=== PATIENT | female | born 1940 | race Caucasian/White ===

== ENCOUNTER → 2016-04-15 | Outpatient (CLI) | payer MEDICARE ==
[2014-06-27 11:00] VITALS: BP 100/69
[~2016-04-15] MED LIST: ALEN35TA6 PO; ASPI81TA2 PO; CALC500T27 PO; CHOL20004 PO; CYAN1TAB28 PO; DENO60DI SQ; DOCU-27 PO; GLUC1TAB29 PO; HYDR-2762 PO; Hydrocodone/Acetaminophen PO; IOHEXOL 180 MG/ML 10 ML VIAL. ONE; LEVO50TA5 PO; MULT-91 PO; OMEG500C3 PO; OMEP20TA PO; methylPREDNISolone ACETATE 40 MG/ML VIAL. ONE; methylPREDNISolone ACETATE 80 MG/ML VIAL. ONE
--- NOTE | 2016-04-16 04:38 | PAIN ---
DATE OF SERVICE: 04/15/2016 DIAGNOSES: Lumbar radiculopathy with lumbar spondylosis, degenerative disk disease and post-lumbar laminectomy syndrome. HISTORY OF PRESENT ILLNESS: The patient is a 75-year-old female who returns for followup, last seen in 07/2013. The patient underwent lumbar epidural steroid injections with good results about 90% improvement. The pain had gotten worse over the past few years. She eventually had surgery with L4 laminectomy and diskectomy and did well afterwards, but the pain is returning now over the past several months in the low back and right leg, right hip, right thigh, anterior medial thigh as well as the medial lower leg down the right leg with some shocking and shooting sensations, worse with standing and walking, worse with first thing in the morning. Rates it as 4 on scale 10 currently, but can be much higher in the morning. The patient reports it is constant, aching pain with radiating shooting pain into the leg, mostly on the right side, but occasionally on the left and across the low back, again mostly right-sided. The patient reports no new motor or sensory deficits, no new bowel or bladder incontinence or other complaints, but still significant pain, especially getting up in the morning and with standing and walking with some fatigability in the right leg compared to the left and back pain associated as well. The patient reports no new motor or sensory deficits, no new bowel or bladder incontinence. PAST MEDICAL HISTORY: Significant for osteopenia, acid reflux, recent lumbar surgery in 06/2016. CURRENT MEDICATIONS: Updated and include omeprazole, alendronate, levothyroxine, vitamin B12, daily baby aspirin, multivitamins, calcium, glucosamine, and fish oils, also Tylenol. ALLERGIES: The patient has no known drug allergies. FAMILY HISTORY: Significant for no major medical problems or conditions that she is aware of, but some back pain and spinal problems with her sister. SOCIAL HISTORY: The patient is still working in real estate. The patient reports she is decreasing her workload; however, and is thinking retiring completely, but the pain exacerbates with her activities of daily living and cause some loss of recreational activity. REVIEW OF SYSTEMS: The patient's review of systems is positive for those items mentioned in history of present illness, are complete, full and well documented on the patient's chart. All systems reviewed and otherwise negative. PHYSICAL EXAMINATION: VITAL SIGNS: Today, the patient's blood pressure is 146/92, pulse 74, respirations 18, temperature 98.4 degrees Fahrenheit, weight is 148 pounds. GENERAL: The patient is awake, alert, oriented, appropriate, very pleasant demeanor. HEENT: Head shows normocephalic and atraumatic. Extraocular movements are intact, symmetrical. Oral cavity, mucous membranes are moist and pink. Dentition is intact. NECK: Shows anterior throat supple without palpable lymphadenopathy noted. Swallow reflex is symmetrical. CHEST: Shows normal on inspection. Breath sounds are clear to auscultation bilaterally. HEART: Shows S1 and S2 clear. No murmurs are auscultated. ABDOMEN: Soft, nontender, and nondistended. No palpable organomegaly noted. No rebound or guarding demonstrated. BACK: Shows spine grossly midline. Normal appearing thoracic kyphosis and lumbar lordotic curvatures, slightly flattened well-healed surgical scars noted in the lumbar distribution in the midline. Lumbar paraspinous muscle shows some moderate tenderness with palpation bilaterally, but only diffusely, slightly more on the right than the left, but again no asymmetry, no tenderness over the sacrum or sacroiliac regions. The patient has good rotational motion of lumbar spine, both laterally greater than 10 degrees right and left as well as extension greater than 10 degrees, forward flexion 45 degrees without difficulty or pain reported. Lower extremities showed deep tendon reflexes 1+ in the patellar and tendo calcaneus tendons are equal. Motor exam is strong with dorsiflexion, extension, quadriceps and hamstring flexion equal at 5/5 and symmetrical. Peripheral pulses are 1+, posterior tibial and dorsalis pedis pulses. No peripheral edema is noted. No clubbing, no cyanosis. Lower extremities are warm and dry to touch, equal in color and appearance. The patient is able to stand, stand on her toes, walks with a normal appearing gait for short distance in the office today. She does not appear to favor the right or left lower extremity, not using any assistive devices such as canes or walkers to ambulate. Options were discussed with the patient. We will proceed with a caudal approach epidural steroid injection today with fluoroscopic guidance. Risks were discussed including but not limited to bleeding, infection, possibility of epidural hematoma, subsequent neurologic compromise, dural puncture, headaches, spinal cord and/or nerve damage, side effects of steroid medication and poor results regarding pain control. The patient understands and wishes to proceed. The patient will return to clinic in approximately 2 weeks for followup, was counseled on return appointment, activity level and side effects to be aware of. CHELE POWELL MD DR: KATINA/charles JOB#: [id number] / [id number]
== END | disposition home or self-care (01) ==
LOC: PNCL 08:49
PROVIDERS: ATTEND Anesthesiology
DX: M51.16 Intervertebral disc disorders with radiculopathy, lumbar region (principal); M47.26 Other spondylosis with radiculopathy, lumbar region; M96.1 Postlaminectomy syndrome, not elsewhere classified; K21.9 Gastro-esophageal reflux disease without esophagitis; M19.90 Unspecified osteoarthritis, unspecified site; E03.9 Hypothyroidism, unspecified; Z87.39 Personal history of other diseases of the musculoskeletal system and connective tissue
CPT/HCPCS: 62323; J1030; J1040

== ENCOUNTER → 2016-05-06 | Outpatient (CLI) | payer MEDICARE ==
[2014-06-27 11:00] VITALS: BP 100/69
[~2016-05-06] MED LIST changes: +METO25TA9 PO
--- NOTE | 2016-05-06 09:58 | PAIN ---
DATE OF SERVICE: 05/06/2016 PROGRESS NOTE DIAGNOSES: Lumbar radiculopathy with lumbar degenerative disk disease, spondylosis and post-lumbar laminectomy syndrome. HISTORY OF PRESENT ILLNESS: This is a 75-year-old female, who returns for followup status post caudal approach epidural steroid injection x 1. The patient reports about 80% improvement in her low back and lower extremity pain. The patient reports still some pain in the morning when she is getting up, but much better than it was. The patient rates it 2 on a scale of 10, now back feels weak with walking and standing. We discussed some physical therapy and she will consider this in the future, but does not radiate to ____ at this time. The patient reports no new motor or sensory deficits, no new bowel or bladder incontinence or other complaints, doing much better, increased ____ activity of daily living with much greater ease and comfort, was sleeping better at night without any new deficits. PHYSICAL EXAMINATION: VITAL SIGNS: The patient's blood pressure 126/79, pulse is 78, respirations 16, temperature 98.1 degrees Fahrenheit. Weight is 145 pounds. GENERAL: The patient is awake, alert, oriented, appropriate, very pleasant demeanor. HEENT: Head shows normocephalic, atraumatic. Extraocular movements are intact, symmetrical. Oral cavity, mucous membranes moist and pink. Dentition intact. NECK: Shows anterior throat supple without palpable lymphadenopathy noted. Swallow reflex is symmetrical. CHEST: Shows normal on inspection. Breath sounds clear to auscultation bilaterally. HEART: Shows S1 and S2 clear. ABDOMEN: Soft, nontender, nondistended. No palpable organomegaly, no rebound or guarding demonstrated. BACK: Shows spine grossly in the midline. Well healed surgical scars noted in the lumbar distribution and some flattening of lumbar lordotic curvature. Lumbar paraspinous musculature shows some symmetrical with inspection with palpation is mildly tender bilaterally, but without radiation, no asymmetry or atrophy, hypertrophy. No tenderness over the sacrum or sacroiliac regions. EXTREMITIES: Lower extremities show deep tendon reflexes at 1+ in the patellar and tendo calcaneus tendons are equal. Motor exam is strong with 5/5 dorsiflexion, extension, quadriceps and hamstring flexion and symmetrical. Options were discussed with the patient. At this time, the patient's old chart was reviewed as her current medication regimen updated. Current review of systems updated today as well. We will proceed with a second caudal approach epidural steroid injection today with fluoroscopic guidance. Risks were again discussed including, but not limited to bleeding, infection, possibility of epidural hematoma, subsequent neurologic compromise, dural puncture, headaches, spinal cord and/or nerve damage, side effects of steroid medication and poor results regarding pain control. The patient understands and wishes to proceed. The patient will return to clinic in approximately 2 weeks for followup, was counseled on return appointment, activity level and side effects to be aware of, also we discussed physical therapy, further and to consider this as well. We will arrange this for her if she desires. DIAGNOSES: Lumbar radiculopathy with lumbar degenerative disk disease, spondylosis and post-lumbar laminectomy syndrome. PROCEDURE: Caudal approach epidural steroid injection using the C-arm fluoroscopic guidance under sterile prep and drape and using local anesthesia. Medication injected is 120 mg Depo-Medrol plus 10 mL of preservative-free normal saline and 2 mL Isovue for contrast. CONDITION AT DISCHARGE: Stable. The patient tolerated procedure well, had no complications. CHELE POWELL MD DR: KATINA/charles JOB#: [id number] / [id number]
== END | disposition home or self-care (01) ==
LOC: PNCL 08:25
PROVIDERS: ATTEND Anesthesiology
DX: M51.16 Intervertebral disc disorders with radiculopathy, lumbar region (principal); M47.26 Other spondylosis with radiculopathy, lumbar region; M96.1 Postlaminectomy syndrome, not elsewhere classified; K21.9 Gastro-esophageal reflux disease without esophagitis; M19.90 Unspecified osteoarthritis, unspecified site; E03.9 Hypothyroidism, unspecified; Z98.41 Cataract extraction status, right eye; Z98.42 Cataract extraction status, left eye
CPT/HCPCS: 62323; J1030; J1040